=== PATIENT | male | born 1930 | race Caucasian/White ===

== ENCOUNTER 2017-07-02 09:15 | Observation (INO) | payer MEDICARE ==
[~2017-07-02] VITALS: Ht 182.9 cm; Wt 85.2 kg
[~2017-07-02 09:15] MED LIST: AMLO5TAB2 PO; ASPI-621 PO; BENA40TA2 PO; CARV3.122 PO; FINA5TAB4 PO; SIMV40TA3 PO; TAMS-11 PO
[2017-07-02 09:36] VITALS: BP 131/85
[2017-07-02] MEDS ORDERED: MIDAZOLAM 1 MG/ML, 2ML ONE (09:51)
[2017-07-02] MEDS ORDERED: FENTANYL PF 250 MCG/5ML ONE (09:51)
[2017-07-02] MEDS ORDERED: BUPIVACAINE/PF 0.5% ONE (09:52)
[2017-07-02] MEDS ORDERED: EPINEPHRINE 1 MG/ML, 1ML ONE (09:53)
[2017-07-02] MEDS ORDERED: LIDOCAINE GEL 2%, 5ML ONE (09:53)
[2017-07-02] MEDS ORDERED: EPHEDRINE 50 MG/ML, 1ML ONE (10:59)
[2017-07-02] MEDS ORDERED: LACTATED RINGERS 1,000 ML IV SCH (11:00)
[2017-07-02] MEDS ORDERED: ACETAMINOPHEN 650 MG/20.3 ML UDC ONE (11:54)
[2017-07-02] MEDS ORDERED: OXYcodone 5 MG/5 ML ORAL.SOL UDC ONE (11:55)
[2017-07-02] MEDS ORDERED: OXYcodone 5 MG/5 ML ORAL.SOL UDC PO PRN (12:00)
[2017-07-02] MEDS ORDERED: HYDROmorphone 2 MG/ML, 1ML IVPush PRN (12:00)
[2017-07-02] MEDS ORDERED: FENTANYL PF 100 MCG/2ML IV PRN (12:00)
[2017-07-02] MEDS ORDERED: ACETAMINOPHEN 325 MG TABLET PO PRN (12:00)
[2017-07-02] MEDS ORDERED: DIPHENHYDRAMINE 50 MG/ML, 1ML IVPush PRN (12:00)
[2017-07-02] MEDS ORDERED: ONDANSETRON 2MG/ML, 2ML IVPush PRN (12:00)
[2017-07-02] MEDS ORDERED: FENTANYL PF 100 MCG/2ML ONE (12:22)
[2017-07-02] MEDS ORDERED: DEXAMETHASONE 4 MG/ML, 1ML ONE (15:23)
[2017-07-02] MEDS ORDERED: SUCCINYLCHOLINE 20 MG/ML, 10ML ONE (15:23)
[2017-07-02] MEDS ORDERED: ROCURONIUM 10 MG/ML,10ML ONE (15:23)
[2017-07-02] MEDS ORDERED: GLYCOPYRROLATE 0.2MG/1ML, 5ML ONE (15:23)
[2017-07-02] MEDS ORDERED: KETOROLAC 30 MG/1 ML ONE (15:23)
[2017-07-02] MEDS ORDERED: PROPOFOL 10 MG/ML, 20ML ONE (15:23)
[2017-07-02] MEDS ORDERED: CEFAZOLIN 1,000 MG ONE (15:23)
[2017-07-02] MEDS ORDERED: PHENYLEPHRINE 10 MG/ML ONE (15:23)
[2017-07-02] MEDS ORDERED: NEOSTIGMINE 1 MG/ML, 10ML ONE (15:23)
[2017-07-02] MEDS ORDERED: ONDANSETRON 2MG/ML, 2ML ONE (15:23)
[2017-07-02] MEDS ORDERED: LACTATED RINGERS 500 ML IVBOLUS ONE (19:30)
[2017-07-02 19:46] VITALS: BP 140/89
[2017-07-02] MEDS ORDERED: AMLODIPINE 5 MG TABLET PO SCH (21:00)
[2017-07-02] MEDS ORDERED: TAMSULOSIN 0.4 MG CAP.ER.24H PO SCH (21:00)
[2017-07-02] MEDS ORDERED: SIMVASTATIN 40 MG TABLET PO SCH (21:00)
[2017-07-02] MEDS ORDERED: BENAZEPRIL 20 MG TABLET PO SCH (21:00)
[2017-07-02] MEDS: OXYcodone 5 MG/5 ML ORAL.SOL UDC PO PRN (22:54)
[2017-07-03 00:14] VITALS: BP 135/74
[2017-07-03 04:09] VITALS: BP 125/68
[2017-07-03] MEDS ORDERED: CARVEDILOL 3.125 MG TABLET PO SCH (06:00)
[2017-07-03] MEDS: ASPIRIN 81 MG TABLET CHEW PO SCH ×2 (06:18→06:25)
[2017-07-03] MEDS: OXYcodone 5 MG/5 ML ORAL.SOL UDC PO PRN (06:38)
[2017-07-03 07:05] VITALS: BP 127/82
[2017-07-03] MEDS ORDERED: FUROSEMIDE 20 MG/2 ML IV ONE (08:30)
[2017-07-03] MEDS ORDERED: FINASTERIDE 5 MG TABLET PO SCH (09:00)
[2017-07-03] MEDS ORDERED: OXYcodone IR 5MG TABLET PO PRN (12:30)
== END 2017-07-03 15:14 | disposition home or self-care (01) ==
LOC: OUT 09:15 → 4NOR 19:40 → OUT 20:20 → 4NOR 20:21 → DCLOUNGE 07-03 15:03
PROVIDERS: ADMIT Surgery; ATTEND Surgery
DX: K40.20 Bilateral inguinal hernia, without obstruction or gangrene, not specified as recurrent (principal); I10 Essential (primary) hypertension; N40.0 Benign prostatic hyperplasia without lower urinary tract symptoms; K21.9 Gastro-esophageal reflux disease without esophagitis
CPT/HCPCS: 49650; 96374; C1781; G0378; J0171; J0330; J0690; J1100; J1885; J1940; J2250; J2370; J2405; J2704; J2710; J3010; J3490; J7120